=== PATIENT | female | born 1965 | race Caucasian/White ===

== ENCOUNTER 2018-10-19 10:19 | Day surgery (SDC) | payer BC ==
[2018-10-16 16:51] VITALS: BMI 50.9
[2018-10-19] MEDS ORDERED: BUPIVACAINE HCL/PF 0.5% (5MG/ML) 10 ML VIAL ONE ×2 (11:15→11:59)
[2018-10-19] MEDS ORDERED: MORPHINE SULFATE 10 MG/1 ML *VIAL ONE (11:19)
[2018-10-19] MEDS ORDERED: ceFAZolin SODIUM 1 GM VIAL ONE ×2 (11:32→11:38)
[2018-10-19] MEDS ORDERED: DEXAMETHASONE SOD PHOSPHATE 4 MG/1 ML VIAL ONE (11:32)
[2018-10-19] MEDS ORDERED: SODIUM CHLORIDE 0.9% P/F 10 ML VIAL IJ ONE (11:32)
[2018-10-19] MEDS ORDERED: LIDOCAINE HCL/PF 2% SDV 5ML VIAL ONE (11:32)
[2018-10-19] MEDS ORDERED: MIDAZOLAM HCL 2 MG/2 ML SINGLE DOSE VIAL ONE (11:32)
[2018-10-19] MEDS ORDERED: ONDANSETRON 4 MG/2 ML VIAL ONE (11:32)
[2018-10-19] MEDS ORDERED: PROPOFOL 20 ML ONE (11:53)
[2018-10-19] MEDS ORDERED: BUPIVACAINE HCL/PF 0.5% (5MG/ML) 10 ML VIAL IJ ONE (12:40)
[2018-10-19] MEDS ORDERED: MORPHINE SULFATE/PF 10 MG/ML ML IT ONE (12:40)
--- NOTE | 2018-10-19 13:12 | OP ---
DATE OF OPERATION: 10/19/2018 PREOPERATIVE DIAGNOSIS: Torn medial meniscus to the right knee. 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 PROCEDURE PERFORMED: Operative arthroscopy of the right knee with partial medial and lateral meniscectomy, chondroplasty, synovectomy, joint debridement. SURGEON: Patrick Mariscal MD BILLIARD TABLE REPAIRER: Douglas Jackson, REF-[place] ANESTHESIA: Jean Gil MD, general anesthesia. The procedure consisted of the patient being brought into the operating room and gently transferred from the stretcher to the OR table with all bony prominences well padded. The right leg was prepared and draped in a sterile fashion. Patient was given intravenous antibiotics and copious irrigation throughout the procedure to minimize the risk of infection. A complete risk/benefit/alternative discussion was conducted with the patient which was inclusive of but not limited to infection, bleeding, , paralysis, increased pain, need for repeat surgery. Patient asked questions, understood the procedure and decided to proceed with surgical treatment. Following sterile preparation and draping of the right leg the leg was exsanguinated using a rubber Esmarch bandage. It should be noted that following sterile preparation and draping an appropriate timeout which was inclusive of but not limited to surgeon, site of surgery, anesthesiologist. The tourniquet was inflated to 350 mmHg. Suprapatellar, medial and lateral joint line portals were used to introduce the arthroscope and arthroscopic instruments. The knee was examined. There was noted to be hypertrophic synovium in the suprapatellar pouch. A partial synovectomy was performed. Anterior surface of the patella damage consistent with chondromalacia was smoothed using a shaver and radiofrequency wand. Medial and lateral gutters without plica or loose body. Medial meniscus was found to have a tear of the posterior horn and this was resected using a shaver and radiofrequency wand. Intercondylar region was noted to have joint debris and a joint debridement was performed. Lateral meniscus was found to have a tear of the posterior horn and this was resected using the shaver and radiofrequency wand. Inferior patellar surface was again reexamined. There was noted to be loss of articular cartilage and chondroplasty was performed. The knee was then copiously irrigated with sterile saline irrigant. Wounds were closed with 4-0 undyed Vicryl. We applied Steri-Strips, Xeroform, 4 x 4's, combined sterile Webril/Maynor bandage and knee immobilizer. Tourniquet was deflated after approximately 20 minutes of tourniquet time. There were no intraoperative complications. PATRICK MARISCAL M.D. [id number]
[2018-10-19 13:56] VITALS: TEMP 98.2
[2018-10-19] MEDS ORDERED: oxyCODONE HCL 5 MG TABLET PO PRN ×2 (14:26)
[2018-10-19] MEDS ORDERED: ONDANSETRON 4 MG/2 ML VIAL IVPUSH PRN (14:26)
[2018-10-19] MEDS ORDERED: LACTATED RINGERS SOLUTION 1,000 ML IV SCH (14:45)
[2018-10-19 15:44] VITALS: BP 130/72; PULSE 84
== END 2018-10-19 15:40 | disposition home or self-care (01) ==
LOC: FASU 10:19
PROVIDERS: ATTEND Orthopaedic Surgery
PROC: 0SBC4ZZ Excision of Right Knee Joint, Percutaneous Endoscopic Approach (ICD-10-PCS; 2018-10-19)
PROC: 0SBC4ZZ Excision of Right Knee Joint, Percutaneous Endoscopic Approach (ICD-10-PCS; 2018-10-19)
PROC: 0SBC4ZZ Excision of Right Knee Joint, Percutaneous Endoscopic Approach (ICD-10-PCS; principal; 2018-10-19 11:45)
DX: S83.241A Other tear of medial meniscus, current injury, right knee, initial encounter (principal); S83.281A Other tear of lateral meniscus, current injury, right knee, initial encounter; M22.41 Chondromalacia patellae, right knee; M67.261 Synovial hypertrophy, not elsewhere classified, right lower leg; M25.861 Other specified joint disorders, right knee
CPT/HCPCS: 82962; 84703; 94760

== ENCOUNTER 2019-06-21 08:19 | Day surgery (SDC) | payer BC ==
[2019-06-20 10:11] VITALS: BMI 50.2
[2019-06-21] MEDS ORDERED: BUPIVACAINE HCL/PF 0.5% (5MG/ML) 10 ML VIAL ONE (09:49)
[2019-06-21] MEDS ORDERED: MORPHINE SULFATE 10 MG/1 ML *VIAL ONE (10:02)
[2019-06-21] MEDS ORDERED: MIDAZOLAM HCL 2 MG/2 ML SINGLE DOSE VIAL ONE (10:04)
[2019-06-21] MEDS ORDERED: PROPOFOL 20 ML ONE ×2 (10:04)
[2019-06-21] MEDS ORDERED: SUCCINYLCHOLINE CHLORIDE 200 MG/10 ML SYRINGE ONE (10:04)
[2019-06-21] MEDS ORDERED: ceFAZolin SODIUM 1 GM VIAL ONE (10:26)
[2019-06-21] MEDS ORDERED: DEXAMETHASONE SOD PHOSPHATE 4 MG/1 ML VIAL ONE (10:31)
[2019-06-21] MEDS ORDERED: ONDANSETRON 4 MG/2 ML VIAL ONE (10:31)
[2019-06-21] MEDS ORDERED: oxyCODONE HCL 5 MG TABLET PO PRN (11:31)
[2019-06-21] MEDS ORDERED: ONDANSETRON 4 MG/2 ML VIAL IVPUSH PRN (11:31)
[2019-06-21] MEDS ORDERED: KETOROLAC TROMETHAMINE 30 MG/1 ML VIAL ONE (11:40)
[2019-06-21] MEDS ORDERED: LACTATED RINGERS SOLUTION 1,000 ML IV SCH (11:45)
--- NOTE | 2019-06-21 13:10 | OP ---
DATE OF OPERATION: 06/21/2019 PREOPERATIVE DIAGNOSIS: Articular damages to the right ankle. 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 PROCEDURE PERFORMED: Operative arthroscopy of the right ankle with joint debridement and debridement of osteochondritis dissecans lesion. SURGEON: Patrick Mariscal MD QUALITY ASSURANCE ASSISTANT: MARLEE Ramirez ANESTHESIA: Rachel Osorio MD TYPE OF ANESTHESIA: General anesthesia. DESCRIPTION OF PROCEDURE: The procedure consisted of the patient being brought into the operating room and gently transferred from the stretcher to the OR table with all bony prominences well padded. The right ankle was prepared and draped in a sterile fashion. The patient was given intravenous antibiotics and copious irrigation throughout the procedure to minimize risk of infection. A complete risk, benefit, alternative discussion was conducted with the patient, which was inclusive of, but not limited to, infection, bleeding, , paralysis, increased pain, need for repeat surgery. The patient asked questions, understood the procedure, and desired to proceed with surgical treatment. Following sterile preparation and draping of the right ankle, an appropriate time-out was conducted, which was inclusive of, but not limited to, type of surgery, site of surgery, anesthesiologist, and surgeon. Following sterile preparation and draping of the right ankle, gentle traction of 10-12 pounds was applied across the ankle joint. AP and lateral portals were used to introduce the arthroscope and arthroscopic instruments. The ankle joint was examined. There was noted to be significant joint debris in the tibiotalar joint, and the joint debridement was performed. There was noted to be evidence of eburnated bone on the dome of the talus in certain areas; however, there was noted to be a significant osteochondritis dissecans lesion to the dome of the talus on the medial aspect, and this was debrided using shaver and radiofrequency wand. The anterior fossa was also noted to have joint debris and a joint debridement was performed. There was noted to be loss of the medial and medial joint spaces as well. The ankle joint was then copiously irrigated with sterile saline irrigant. The wounds were closed with Steri-Strips followed by Xeroform, 4 x 4's, Combine, sterile Webril, VENECIA bandages, and an ankle-foot arthrosis was applied. The patient was then gently awoken from anesthesia without incident and transferred from the operating room to the recovery room in satisfactory condition. There were no known intraoperative complications. PATRICK MARISCAL M.D. [id number]
[2019-06-21 13:24] VITALS: PULSE 86; TEMP 98.3
[2019-06-21 14:05] VITALS: BP 113/73
== END 2019-06-21 15:30 | disposition home or self-care (01) ==
LOC: FASU 08:19
PROVIDERS: ATTEND Orthopaedic Surgery
PROC: 0SBF4ZZ Excision of Right Ankle Joint, Percutaneous Endoscopic Approach (ICD-10-PCS; 2019-06-21)
PROC: 0SBF4ZZ Excision of Right Ankle Joint, Percutaneous Endoscopic Approach (ICD-10-PCS; principal; 2019-06-21 10:45)
DX: M24.171 Other articular cartilage disorders, right ankle (principal); M25.871 Other specified joint disorders, right ankle and foot; M93.271 Osteochondritis dissecans, right ankle and joints of right foot
CPT/HCPCS: 82962; 84703; 94760

== ENCOUNTER 2020-03-16 09:42 | Day surgery (SDC) | payer BC ==
[2020-03-04 11:03] VITALS: BMI 48.7
[2020-03-16] MEDS ORDERED: MORPHINE SULFATE 10 MG/1 ML *VIAL ONE (10:05)
[2020-03-16] MEDS ORDERED: PROPOFOL 20 ML ONE ×2 (10:45)
[2020-03-16] MEDS ORDERED: BUPIVACAINE HCL/PF 0.5% (5 MG/ML) 30 ML VIAL IJ ONE (11:24)
[2020-03-16] MEDS ORDERED: morphine CARPU-JECT 10 MG/1 ML DISP.SYRIN NR ONE (11:26)
[2020-03-16] MEDS ORDERED: ONDANSETRON 4 MG/2 ML VIAL IVPUSH PRN (11:51)
[2020-03-16] MEDS ORDERED: ONDANSETRON 4 MG/2 ML VIAL ONE (12:15)
[2020-03-16] MEDS ORDERED: oxyCODONE HCL 5 MG TABLET PO PRN (12:25)
[2020-03-16] MEDS ORDERED: oxyCODONE HCL 5 MG TABLET ONE (12:28)
[2020-03-16] MEDS ORDERED: IBUPROFEN 600 MG TABLET (FP) PO ONE (13:13)
[2020-03-16 13:26] VITALS: BP 144/70; TEMP 98.7
[2020-03-16 14:22] VITALS: PULSE 96
--- NOTE | 2020-03-17 11:03 | OP ---
DATE OF OPERATION: 03/16/2020 PREOPERATIVE DIAGNOSIS: 1. Stiff left knee. 2. Torn medial meniscus to the left knee. POSTOPERATIVE DIAGNOSIS: 1. Osteochondritis desiccans lesion to the left knee. 2. Chondral damage and chondromalacia to the left knee. 3. Hypertrophic synovium to the left knee. 4. Extensive joint debridement to the left knee. 5. Tear of the medial and lateral meniscus left knee. 6. Stiff left knee with adhesions. PROCEDURE: 1. Drilling for osteochondritis with desiccans lesion for stem cell recruitment to the left knee. 2. Chondral shaving and chondroplasty left knee. 3. Extensive synovectomy to the left knee. 4. Extensive joint debridement left knee. 5. Meniscectomy medial and lateral meniscus left knee. 6. Gentle manipulation under anesthesia with lysis and resection of adhesions left knee. 7. Plastic surgical closure to the left knee. SURGEON: Patrick Ordoñez MD SOLUTIONS ARCHITECT: GLORY Ramirez-RNF ANESTHESIOLOGIST: Isaias Mitchell MD ANESTHESIA: General. DETAILS OF PROCEDURE: The patient was brought to the operating room and gently transferred from the stretcher to the OR table with all bony prominences well padded. The left leg was prepared and draped in a sterile fashion. The patient was given intravenous antibiotics and copious irrigation throughout the procedure to minimize risk for infection. A complete risks, benefits, and alternative discussion was conducted with the patient which was inclusive of but not limited to infection, bleeding, , paralysis, increased pain, need for repeat surgery. The patient asked questions, understood the procedure, and desired to proceed with surgical treatment. Following sterile preparation and draping of the left leg, the leg had been exsanguinated using a rubber Esmarch bandage with the tourniquet inflated to 350 mmHg. Prior to initiation of the surgical procedure, a gentle manipulation of the left knee was performed. Initial range of movement was significantly limited with a 7-degree block to extension with 85 degrees of flexion. Following the gentle slow manipulation, full extension was achieved with 125 degrees of flexion. Following exsanguination of the knee with a rubber Esmarch bandage, the knee was examined. There was noted to be adhesions within the midpoint and these were lysed and resected. There was noted to be extensive hypertrophic synovium in the suprapatellar pouch and in the gutters and an extensive synovectomy was performed. Anterior surface of the patella had damage consistent with severe articular cartilage damage and a chondral shaving was performed with chondroplasty. Medial meniscus was examined. There was noted to be tearing of the posterior horn. This was resected using shaver and radiofrequency wand. Medial femoral condyle was noted to have 1 cm diameter osteochondritis desiccans lesion with bone exposure. This was dbrided and microdrilling using a 0.62-mm drill was used to perforate in a perforation pattern with closely spaced drill holes to allow stem cell recruitment to fill the osteochondritis desiccans lesion with stem cells. Intercondylar recess was noted to have extensive joint debris and joint debridement was performed which was an extensive debridement. Cruciate ligament was found to be intact. The posterior cruciate ligament at its insertion was visualized and appeared intact. The lateral meniscus was found to have a tear at the posterior horn. This was resected using shaver and radiofrequency wand. Douglas Jackson was critical for assisting during surgery, holding the arthroscope I used the drill and arthroscopic instruments. He provided critical support and safety in surgical treatment. The knee was then copiously irrigated with sterile saline irrigant. The wounds were closed in a plastic surgical closure with subcuticular closures of 4-0 undyed Vicryl. A dressing of Steri-Strips, Xeroform, 4 x 4s, Combine, sterile Webril, and Maynor bandages were applied. The patient was then gently awoken from anesthesia without incident and transferred from the operating room to the recovery room in satisfactory condition. There were intraoperative complications. It should be noted the tourniquet was deflated after approximately 35 minutes of tourniquet time. The patient was transferred from the operating room to the recovery room in excellent condition. PATRICK ORDOÑEZ M.D. [id number]
--- NOTE | 2020-03-18 16:02 | PATH ---
Surgical Pathology Report Patient Name: BRANDAN CRANDALL [facility]. Rec. #: [id number] /Age/Gender: 1965 (Age: 54) / F Account: [id number] Location: [facility] Taken: 03/16/2020 Received: 03/16/2020 Reported: 03/18/2020 Physicians: Paul Mariscal M.D. Specimen(s) Received SHAVINGS LEFT KNEE Clinical History Internal derangement left knee Final Diagnosis KNEE, LEFT, ARTHROSCOPIC SHAVINGS: FIBROSYNOVIAL TISSUE, CARTILAGE AND BONE. Electronically Signed Rayne Johns M.D. Gross Description Received in formalin labeled "left knee shavings," is a 3.0 x 1.8 x 0.3 cm aggregate of prado-yellow soft tissue fragments. The formalin is filtered and the specimen is entirely submitted in one cassette. /03/17/2020 saudi/03/17/2020
== END 2020-03-16 14:05 | disposition home or self-care (01) ==
LOC: FASU 09:42
PROVIDERS: ATTEND Orthopaedic Surgery
PROC: 0SBD4ZZ Excision of Left Knee Joint, Percutaneous Endoscopic Approach (ICD-10-PCS; 2020-03-16)
PROC: 0SQD4ZZ Repair Left Knee Joint, Percutaneous Endoscopic Approach (ICD-10-PCS; 2020-03-16)
PROC: 0SQD4ZZ Repair Left Knee Joint, Percutaneous Endoscopic Approach (ICD-10-PCS; 2020-03-16)
PROC: 0SBD4ZZ Excision of Left Knee Joint, Percutaneous Endoscopic Approach (ICD-10-PCS; 2020-03-16)
PROC: 0SBD4ZZ Excision of Left Knee Joint, Percutaneous Endoscopic Approach (ICD-10-PCS; principal; 2020-03-16 11:07)
DX: S83.242A Other tear of medial meniscus, current injury, left knee, initial encounter (principal); S83.282A Other tear of lateral meniscus, current injury, left knee, initial encounter; M93.262 Osteochondritis dissecans, left knee; M94.262 Chondromalacia, left knee; M67.262 Synovial hypertrophy, not elsewhere classified, left lower leg; X58.XXXA Exposure to other specified factors, initial encounter; Y93.9 Activity, unspecified; Y92.9 Unspecified place or not applicable
CPT/HCPCS: 29879; 29880; 29886; G0289; 82962; 84703; 88304-TC; 94760

== ENCOUNTER 2021-05-24 13:35 | Day surgery (SDC) | payer BC ==
[2021-05-17 16:28] VITALS: BMI 50.2
[2021-05-24] MEDS ORDERED: MORPHINE SULFATE 10 MG/1 ML *VIAL ONE (15:41)
[2021-05-24] MEDS ORDERED: BUPIVACAINE HCL 100 ML ONE (15:43)
[2021-05-24] MEDS ORDERED: ONDANSETRON 4 MG/2 ML VIAL IVPUSH PRN (16:00)
[2021-05-24] MEDS ORDERED: LACTATED RINGERS SOLUTION 1,000 ML IV SCH ×2 (16:00→18:15)
[2021-05-24] MEDS ORDERED: oxyCODONE HCL 5 MG TABLET PO PRN ×2 (16:00→18:12)
[2021-05-24] MEDS ORDERED: PROMETHAZINE HCL 25 MG/1 ML VIAL IVPUSH PRN (16:00)
[2021-05-24] MEDS ORDERED: ACETAMINOPHEN 1000 MG/100 ML VIAL (NON FORMULARY) IVPB ONE (16:01)
[2021-05-24] MEDS ORDERED: MIDAZOLAM HCL 2 MG/2 ML SINGLE DOSE VIAL ONE (16:23)
[2021-05-24] MEDS ORDERED: METOPROLOL TARTRATE 5 MG/5 ML VIAL ONE (16:23)
[2021-05-24] MEDS ORDERED: fentaNYL CITRATE 250 MCG/5 ML VIAL ONE (16:23)
[2021-05-24] MEDS ORDERED: PROPOFOL 20 ML ONE ×3 (16:32→17:42)
[2021-05-24] MEDS ORDERED: SUCCINYLCHOLINE CHLORIDE 200 MG/10 ML SYRINGE ONE (16:32)
[2021-05-24] MEDS ORDERED: LABETALOL HCL 5 MG/1 ML (100MG/20 ML VIAL) ONE (16:51)
[2021-05-24] MEDS ORDERED: ROCURONIUM BROMIDE 50 MG/5 ML SYRINGE ONE (17:01)
[2021-05-24] MEDS ORDERED: KETOROLAC TROMETHAMINE 30 MG/1 ML VIAL ONE (18:07)
[2021-05-24 19:25] VITALS: PULSE 87
[2021-05-24 19:29] VITALS: BP 145/89; TEMP 97.6
== END 2021-05-24 19:29 | disposition home or self-care (01) ==
LOC: FASU 13:35
PROVIDERS: ATTEND Orthopaedic Surgery
PROC: 0SBD4ZZ Excision of Left Knee Joint, Percutaneous Endoscopic Approach (ICD-10-PCS; 2021-05-24)
PROC: 0MSP4ZZ Reposition Left Knee Bursa and Ligament, Percutaneous Endoscopic Approach (ICD-10-PCS; 2021-05-24)
PROC: 0SQD4ZZ Repair Left Knee Joint, Percutaneous Endoscopic Approach (ICD-10-PCS; 2021-05-24)
PROC: 0SBD4ZZ Excision of Left Knee Joint, Percutaneous Endoscopic Approach (ICD-10-PCS; 2021-05-24)
PROC: 0SBD4ZZ Excision of Left Knee Joint, Percutaneous Endoscopic Approach (ICD-10-PCS; principal; 2021-05-24 17:02)
DX: S83.242A Other tear of medial meniscus, current injury, left knee, initial encounter (principal); S83.282A Other tear of lateral meniscus, current injury, left knee, initial encounter; M25.662 Stiffness of left knee, not elsewhere classified; M93.262 Osteochondritis dissecans, left knee; S83.512A Sprain of anterior cruciate ligament of left knee, initial encounter; X58.XXXA Exposure to other specified factors, initial encounter; Y93.9 Activity, unspecified; Y92.9 Unspecified place or not applicable; M94.262 Chondromalacia, left knee; M25.862 Other specified joint disorders, left knee; M67.262 Synovial hypertrophy, not elsewhere classified, left lower leg
CPT/HCPCS: 29880; 29886; G0289; 82962; 94760